=== PATIENT | male | born 1985 | race African-American/Black ===

== ENCOUNTER 2017-07-02 20:57 | Outpatient (CLI) | payer SELFPAY | END 2017-07-02 20:58 | disposition EMS.NT | LOC: EMS 20:57 | PROVIDERS: ATTEND Surgery | DX: R55 Syncope and collapse (principal) ==

== ENCOUNTER 2021-06-28 22:26 | Outpatient (CLI) | payer OTHER | END 2021-06-28 22:27 | disposition critical access hospital (66) | LOC: EMS 22:26 | DX: S06.9X9A Unspecified intracranial injury with loss of consciousness of unspecified duration, initial encounter (principal); S01.21XA Laceration without foreign body of nose, initial encounter; S51.811A Laceration without foreign body of right forearm, initial encounter; S81.011A Laceration without foreign body, right knee, initial encounter; S91.111A Laceration without foreign body of right great toe without damage to nail, initial encounter; V28.4XXA Motorcycle driver injured in noncollision transport accident in traffic accident, initial encounter; Y92.410 Unspecified street and highway as the place of occurrence of the external cause | CPT/HCPCS: A0425; A0429 ==

== ENCOUNTER 2021-06-28 22:52 | Emergency (ER) | payer OTHER ==
[2021-06-28 23:12] LABS: BASOPHILS # (AUTO) 0.1 10^3/uL (0.0-0.1); BASOPHILS % (AUTO) 0.4 %; EOSINOPHILS # (AUTO) 0.3 10^3/uL (0.0-0.7); EOSINOPHILS % (AUTO) 2.2 %; HCT - HEMATOCRIT 44.4 % (42.0-52.0); HGB - HEMOGLOBIN 14.9 g/dL (14.0-18.0); LYMPHOCYTES # (AUTO) 5.8 10^3/uL (1.5-3.5); MEAN CORPUSCULAR HEMOGLOBIN 30.5 pg (27.0-31.0); MEAN CORPUSCULAR HGB CONC 33.6 g/dL (32.0-36.0); MEAN CORPUSCULAR VOLUME 90.8 fL (80.0-94.0); MEAN PLATELET VOLUME 10.2 fL (7.4-11.4); MONOCYTES # (AUTO) 0.9 10^3/uL (0.0-1.0); MONOCYTES % (AUTO) 6.6 %; NEUTROPHILS # (AUTO) 6.7 10^3/uL (1.5-6.6); PLT - PLATELET COUNT 215 10^3/uL (130-450); RED BLOOD COUNT 4.89 10^6/uL (4.70-6.10); RED CELL DISTRIBUTION WIDTH 12.6 % (12.0-15.0); WHITE BLOOD COUNT 13.9 x10^3/uL (4.8-10.8)
[2021-06-28] MEDS ORDERED: KETOROLAC 30 MG/ML VIAL IVP STA (23:14)
[2021-06-28] MEDS ORDERED: KETOROLAC 30 MG/ML VIAL ONE (23:18)
[2021-06-28 23:20] LABS: ALBUMIN 4.6 g/dL (3.2-5.5); ALBUMIN/GLOBULIN RATIO 1.2 (1.0-2.2); BILIRUBIN,TOTAL 0.8 mg/dL (0.2-1.0); CREATININE 1.2 mg/dL (0.6-1.2); TOTAL PROTEIN 8.5 g/dL (6.7-8.2)
[2021-06-29] MEDS ORDERED: TETANUS/DIPHTHERIA/PERTUSSIS 0.5 ML SYRINGE IM ONE (00:37)
[2021-06-29] MEDS ORDERED: ceFAZolin 1 GM in SODIUM CHLORIDE 0.9% MINIBAG 100 ML IV STA (00:39)
[2021-06-29] MEDS ORDERED: ceFAZolin 1 GM VIAL ONE (00:53)
[2021-06-29 01:16] LABS: BILIRUBIN,URINE NEGATIVE (NEGATIVE); GLUCOSE, URINE (UA) NEGATIVE (NEGATIVE); KETONES,URINE (UA) NEGATIVE (NEGATIVE); LEUKOCYTE ESTERASE, URINE NEGATIVE (NEGATIVE); NITRITE,URINE NEGATIVE (NEGATIVE); OCCULT BLOOD,URINE SMALL (NEGATIVE); PROTEIN,URINE NEGATIVE (NEGATIVE); UROBILINOGEN,URINE 0.2 (NORMAL) E.U./dL (NORMAL)
[2021-06-29 01:25] LABS: BACTERIA,URINE None Seen /HPF (None Seen); CLARITY,URINE CLEAR (CLEAR); RBC,URINE 0-5 /HPF (0-5); SQUAMOUS EPITHELIAL CELL,UR RARE Squamous (<= Few); WBC,URINE 0-3 /HPF (0-3)
[2021-06-29 01:26] LABS: MUCUS,URINE Few Strands
[2021-06-29 02:22] LABS: B. PARAPERTUSSIS- RESP PCR PAN NOT DETECTED; B. PERTUSSIS- RESP PCR PANEL NOT DETECTED; C. PNEUMONIAE- RESP PCR PANEL NOT DETECTED; CORONAVIRUS 229E-RESP PCR NOT DETECTED; CORONAVIRUS HKU1-RESP PCR NOT DETECTED; CORONAVIRUS NL63-RESP PCR NOT DETECTED; CORONAVIRUS OC43-RESP PCR NOT DETECTED; HUMAN METAPNEUMOVIRUS NOT DETECTED; INFLUENZA A- RESP PCR PANEL NOT DETECTED; INFLUENZA B - RESP PCR PANEL NOT DETECTED; M. PNEUMONIAE- RESP PCR PANEL NOT DETECTED; PARAINFLUENZA VIRUS 1 NOT DETECTED; PARAINFLUENZA VIRUS 2 NOT DETECTED; PARAINFLUENZA VIRUS 3 NOT DETECTED; PARAINFLUENZA VIRUS 4 NOT DETECTED; RHINOVIRUS/ENTEROVIRUS NOT DETECTED; RSV- RESP PCR PANEL NOT DETECTED; SARS-CoV-2 -RESP PCR PANEL NOT DETECTED
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
[2021-06-29] MEDS ORDERED: ONDANSETRON 4 MG/2 ML VIAL IVP STA (02:38)
[2021-06-29] MEDS ORDERED: HYDROmorphone 1 MG/ML CARPUJECT IVP STA (02:38)
[2021-06-29] MEDS ORDERED: BUFFERED LIDOCAINE 10 ML SYRINGE SUBQ STA (04:01)
[2021-06-29] MEDS ORDERED: LIDOCAINE 1% 2 ML VIAL SUBQ STA (04:12)
[2021-06-29 05:27] VITALS: BP 141/96
--- NOTE | 2021-06-29 08:16 | CT Report ---
PROCEDURE: HEAD WO INDICATIONS: head injury MCA TECHNIQUE: Noncontrast 4.5 mm thick angled axial sections acquired from the foramen magnum to the vertex. For r adiation dose reduction, the following was used: automated exposure control, adjustment of mA and/or kV according to patient size. COMPARISON: None. FINDINGS: Image quality: Excellent. CSF spaces: Basal cisterns are patent. No extra-axial fluid collections. Ventricles are normal in size and shape. Brain: No midline shift. No intracranial masses or hemorrhage. Lazo-white matter interface is norm al. Skull and face: Calvarium and visualized facial bones are intact, without suspicious lesions. Sinuses: Visualized sinuses and mastoids are clear. IMPRESSION: 1. No CT evidence of acute intracranial pathology. 2. No acute skull fracture. No discrepancies from pulmonary reading. Reviewed by: Drake Sargent MD on 06/29/2021 8:15 AM PDT Approved by: Drake Sargent MD on 06/29/2021 8:15 AM PDT Station ID: [id number]
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
--- NOTE | 2021-06-29 08:25 | XRAY Report ---
PROCEDURE: Knee 4 View RT INDICATIONS: [facility] deep tissue loss TECHNIQUE: 4 views of the right knee(s) were acquired. COMPARISON: None. FINDINGS: Bones: No fractures or dislocations. Mild tricompartmental osteoarthritis is seen. No suspicious bon y lesions. Soft tissues: Anterior soft tissue laceration anterior to mid to distal patellar tendon is seen. No g ross full-thickness patellar tendon rupture. No joint effusion. No suspicious soft tissue calcificat ions. IMPRESSION: Anterior right knee soft tissue laceration. No acute fracture or dislocation. No radiopa que foreign body is seen. No significant joint effusion. No significant discrepancies. Reviewed by: Drake Sargent MD on 06/29/2021 8:24 AM PDT Approved by: Drake Sargent MD on 06/29/2021 8:24 AM PDT Station ID: [id number]
--- NOTE | 2021-06-29 08:27 | XRAY Report ---
PROCEDURE: Foot 3 View RT INDICATIONS: trauma to great toe tissue missing. TECHNIQUE: 3 views of the foot were acquired. COMPARISON: None FINDINGS: Bones: Postsurgical changes are noted in first interphalangeal joint with resection of first proxima l phalangeal head. No acute fracture or dislocation. No gross bony erosive changes.. No suspicious b titus lesions. Soft tissues: Soft tissue defect and subcutaneous emphysema at first interphalangeal joint is seen. No radiopaque foreign body is noted. No tibiotalar joint effusion. Achilles tendon appears normal. IMPRESSION: 1. Postsurgical changes in first interphalangeal joint as above. No acute fracture or dislocation. No radiographic evidence of osteomyelitis. 2. Soft tissue defect and subcutaneous emphysema at first interphalangeal joint likely represent post surgical changes versus penetrating trauma. No radiopaque foreign body is seen. No discrepancies. Reviewed by: Drake Sargent MD on 06/29/2021 8:26 AM PDT Approved by: Drake Sargent MD on 06/29/2021 8:26 AM PDT Station ID: [id number]
--- NOTE | 2021-06-29 08:39 | XRAY Report ---
PROCEDURE: Chest 1 View X-Ray INDICATIONS: Chest pain TECHNIQUE: One view of the chest was acquired. COMPARISON: None. FINDINGS: Surgical changes and devices: None. Lungs and pleura: No pleural effusions or pneumothorax. Lungs are clear. Mediastinum: Mediastinal contours appear normal. Heart size is normal. Bones and chest wall: No suspicious bony lesions. Overlying soft tissues appear unremarkable. IMPRESSION: No acute cardiopulmonary process demonstrated radiographically. No significant change from preliminar y report. Reviewed by: Dayday Lala MD on 06/29/2021 8:38 AM PDT Approved by: Dayday Lala MD on 06/29/2021 8:38 AM PDT Station ID: [id number]
--- NOTE | 2021-06-29 08:44 | CT Report ---
PROCEDURE: LUMBAR SPINE WO INDICATIONS: MCA lower lumbar and right pelvis pain TECHNIQUE: Noncontrast 3 mm thick sections acquired from the T12 level to the sacrum. Sagittal and coronal refo rmats were constructed. For radiation dose reduction, the following was used: automated exposure co ntrol, adjustment of mA and/or kV according to patient size. COMPARISON: None. FINDINGS: There is a mildly displaced acute fracture of the right L3 transverse process. No additional fracture . Normal lumbar vertebral body height and alignment. Mild degenerative changes at L5-S1. No obvious s ann canal or neural foraminal stenosis. Regional soft tissues are normal. Appendectomy changes note d. IMPRESSION: 1. Acute right L3 transverse process fracture, mildly displaced. 2. No significant change from preliminary report. Reviewed by: Dayday Lala MD on 06/29/2021 8:42 AM PDT Approved by: Dayday Lala MD on 06/29/2021 8:42 AM PDT Station ID: [id number]
--- NOTE | 2021-06-29 09:05 | CT Report ---
PROCEDURE: PELVIS WO INDICATIONS: right posterior pelvic brim pain TECHNIQUE: Noncontrast 3 mm axial sections acquired through the bony pelvis, with coronal and sagittal reformatt ing. For radiation dose reduction, the following was used: automated exposure control, adjustment of mA and/or kV according to patient size. COMPARISON: None. FINDINGS: Image quality: Excellent. Bones: No acute fracture identified. There is anatomic alignment. Mild L5-S1 spondylosis and facet a rthropathy. Prominent marginal spurring at both femoral heads. Soft tissues: Incidentally noted high riding position of the left testis. Subcutaneous soft tissues are within normal limits. The bladder and intrapelvic contents grossly unremarkable. Partial asymmet betsy size of the piriformis muscles, right smaller than left raising possibility of piriformis syndrom e IMPRESSION: Asymmetric size of the piriformis muscles, right smaller than left. This raises the possibility of lo ng-standing piriformis syndrome although only in the appropriate clinical context. Recommend clinical correlation. Findings were personally telephoned and discussed with Dr. Monk on 06-29-21 09:02 Elsewhere, no specific visualized etiology for right pelvic pain. Reviewed by: Qamar Barcenas MD on 06/29/2021 9:04 AM PDT Approved by: Qamar Barcenas MD on 06/29/2021 9:04 AM PDT Station ID: [id number]
== END 2021-06-29 05:55 | disposition short-term general hospital (02) ==
LOC: EDUNIT# → ED 22:52
DX: S32.038A Other fracture of third lumbar vertebra, initial encounter for closed fracture (principal); S01.21XA Laceration without foreign body of nose, initial encounter; S90.811A Abrasion, right foot, initial encounter; S50.811A Abrasion of right forearm, initial encounter; S06.0X1A Concussion with loss of consciousness of 30 minutes or less, initial encounter; V28.4XXA Motorcycle driver injured in noncollision transport accident in traffic accident, initial encounter; Y93.55 Activity, bike riding; F17.200 Nicotine dependence, unspecified, uncomplicated; Z23 Encounter for immunization
CPT/HCPCS: 0202U; 12013; 36415; 70450; 71045; 72125; 72131; 72192; 73564; 73630; 80053; 81001; 83690; 85025; 90471; 90715; 96365; 96375; 99285; J1170; 81003; 87086

== ENCOUNTER 2021-06-29 05:45 | Outpatient (CLI) | payer OTHER | END 2021-06-29 05:46 | disposition short-term general hospital (02) | LOC: EMS 05:45 | PROVIDERS: ATTEND Emergency Medicine | DX: S32.039A Unspecified fracture of third lumbar vertebra, initial encounter for closed fracture (principal); S51.801A Unspecified open wound of right forearm, initial encounter; S81.001A Unspecified open wound, right knee, initial encounter; S91.101A Unspecified open wound of right great toe without damage to nail, initial encounter; V28.4XXA Motorcycle driver injured in noncollision transport accident in traffic accident, initial encounter; Y92.410 Unspecified street and highway as the place of occurrence of the external cause | CPT/HCPCS: A0425; A0426 ==

== ENCOUNTER 2023-01-19 22:56 | Outpatient (CLI) | payer OTHER | END 2023-01-19 22:57 | disposition EMS.NT | LOC: EMS 22:56 | DX: Z04.1 Encounter for examination and observation following transport accident (principal) ==

== ENCOUNTER 2023-01-20 01:25 | Emergency (ER) | payer OTHER ==
[2023-01-20 01:31] VITALS: BP 168/103
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
== END 2023-01-20 02:03 | disposition home or self-care (01) ==
LOC: ED 01:25
DX: Z02.89 Encounter for other administrative examinations (principal); V28.49XA Other motorcycle driver injured in noncollision transport accident in traffic accident, initial encounter; F17.200 Nicotine dependence, unspecified, uncomplicated
CPT/HCPCS: 99281; 99282